=== PATIENT | female | born 1980 | race Caucasian/White ===

== ENCOUNTER → 2016-12-27 | Day surgery (SDC) | payer OTHER ==
[~2016-12-27] MED LIST: BUPIVACAINE HCL 0.25% 125 MG/50 ML VIAL ONE; LIDOCAINE HCL 1%, 10 MG/ML (20ML VIAL) ONE; MIDAZOLAM HCL 2 MG/2 ML SINGLE DOSE VIAL ONE; PROPOFOL 20 ML ONE
--- NOTE | 2016-12-30 09:19 | OP ---
DATE OF OPERATION: 12/27/2016 PROCEDURE: Left ultrasound-guided core biopsy and clip placement PREOPERATIVE DIAGNOSIS: Left breast mass 3 o'clock, 6 cm from the nipple POSTOPERATIVE DIAGNOSIS: Left breast mass 3 o'clock, 6 cm from the nipple ANESTHESIA: Local SURGEON: Jazlyn Ness MD ESTIMATED BLOOD LOSS: Minimal. COMPLICATIONS: None. DESCRIPTION OF PROCEDURE: Patient was made aware of the risks and benefits of the procedure and consented. Patient was placed in a supine position. Under sterile conditions with 1% lidocaine for local anesthesia, a small joe was made in the skin. Using a 15-gauge, a suction biopsy under a lateral approach and under ultrasound guidance, 6 cores were obtained and submitted to pathology. Likewise under ultrasound guidance, a clip was placed into the biopsy region, well-tolerated the patient. Steri-strips and a sterile bandage were applied. Will contact her with the results. JAZLYN NESS M.D. [id number]
--- NOTE | 2016-12-30 14:36 | PATH ---
Surgical Pathology Report Patient Name: JOSE PATTON [facility]. Rec. #: [id number] /Age/Gender: 1980 (Age: 36) / F Account: [id number] Location: [facility] RADIOLOGY U Taken: 12/27/2016 Received: 12/27/2016 Reported: 12/30/2016 Physicians: Troy Woodson M.D. Specimen(s) Received LEFT BREAST CORE BIOPSY 3:00 6CM FN Clinical History Non-palpable lesion Probably benign Final Diagnosis BREAST, LEFT, 3:00, 6 CM FN, CORE BIOPSY: BENIGN BREAST TISSUE SHOWING FIBROADENOMA. Electronically Signed Emmie Arnold M.D. Gross Description Received in formalin labeled "left breast 3:00, 6 cmfn," is a 2.1 x 1.3 x 0.3 cm. aggregate of multiple vanessa-yellow, irregular to cylindrical portions of fibroadipose tissue admixed with blood clot. The formalin is filtered and the specimen is entirely submitted in one cassette. Time to formalin fixation: < 1 minute Total formalin fixation time: Approximately 8 hours /12/27/2016
== END | disposition home or self-care (01) ==
LOC: FRADUS-SUR 13:35
PROVIDERS: ATTEND Surgery
PROC: 0HBU3ZX Excision of Left Breast, Percutaneous Approach, Diagnostic (ICD-10-PCS; principal; 2016-12-27)
DX: N63 Unspecified lump in breast (principal); D24.2 Benign neoplasm of left breast
CPT/HCPCS: 19083; 87899; 88305-TC; A4648

== ENCOUNTER 2017-01-30 10:20 | Day surgery (SDC) | payer OTHER ==
--- NOTE | 2017-01-17 10:44 | HP ---
Admitting History and Physical - Primary Care Physician PCP: Jolanta Ortega - Admission Chief Complaint: left breast mass History of Present Illness: 36 yo female presents with complaint of palpable left breast mass times 5 yrs. Patient states that mass has increased in size and is now intermittently painful. US done 11/13/2016 c/w a 1.9 cm mass. Patient underwent a left breast core bx on 12/27/2016 which was positive for fibroadenoma. Patient to undergo a WE of the mass. History Source: Patient Limitations to Obtaining History: No Limitations - Past Surgical History Additional Past Surgical History: ovarian cystectomy (2012) - Smoking History Smoking history: Never smoked Home Medications - Allergies Allergies/Adverse Reactions: Allergies Allergy/AdvReac Type Severity Reaction Status Date / Time No Known Allergies Allergy Verified 01/17/17 10:45 - Home Medications Home Medications (free text): Vitamin B 12 Family Disease History - Family Disease History Family History: Unremarkable Review of Systems - Review of Systems Genitourinary: reports: Other (painful and irregular periods) Musculoskeletal: reports: Back Pain, Joint Pain, Muscle Pain, Other (neck pain and difficulty walking) Endocrine: reports: Unexplained Weight Gain Physical Examination Constitutional: Yes: Well Nourished, Calm Breast(s): Yes: Other (Breast without skin changes noted. Bilateral dense breasts with 2 cm palpable mass at 3 oclock.) Problem List - Problems (1) Fibroadenoma of left breast Code(s): D24.2 - BENIGN NEOPLASM OF LEFT BREAST Assessment/Plan Left breast WE
[2017-01-24 15:32] VITALS: BMI 34.0
[2017-01-30] MEDS ORDERED: KETOROLAC TROMETHAMINE 30 MG/1 ML VIAL IVPUSH PRN (11:48)
[2017-01-30] MEDS ORDERED: DEXTROSE 5%-0.45% SALINE 1,000 ML IV SCH (12:00)
[2017-01-30] MEDS ORDERED: ONDANSETRON 4 MG/2 ML VIAL IVPB PRN (12:15)
[2017-01-30] MEDS ORDERED: LACTATED RINGERS SOLUTION 1,000 ML IV SCH (13:45)
[2017-01-30] MEDS ORDERED: ACETAMINOPHEN 500 MG TABLET (FP) PO PRN (13:58)
[2017-01-30] MEDS ORDERED: ONDANSETRON 4 MG/2 ML VIAL IVPUSH PRN (14:07)
[2017-01-30] MEDS ORDERED: oxyCODONE HCL 5 MG TABLET PO PRN (14:08)
[2017-01-30 15:13] VITALS: TEMP 97.4
[2017-01-30 15:20] VITALS: BP 126/65; PULSE 55
--- NOTE | 2017-01-30 19:38 | OP ---
DATE OF OPERATION: DATE OF DICTATION: 01/30/2017 PREOPERATIVE DIAGNOSIS: Left breast mass. POSTOPERATIVE DIAGNOSIS: Left breast mass. PROCEDURE: Excision of left breast mass. SURGEON: Jolanta Ortega M.D. ANSWERING SERVICE TELEPHONE OPERATOR: Judy Dawson ANESTHESIA: MAC. ANESTHESIOLOGIST: Tonya Bunch M.D. SPECIMEN: Left breast mass. ESTIMATED BLOOD LOSS: Minimal. INDICATION FOR PROCEDURE: The patient is a 36-year-old woman with a palpable left breast mass at 3 o'clock. Ultrasound guided biopsy showed fibroadenoma. The patient wanted excision, as the mass has increased in size. The procedure, risks, and complications were discussed with her prior to surgery. PROCEDURE: The patient was identified in the holding area. The left breast was marked with a marker. She was taken to the operating room and placed on the operating table in the supine position. She was sedated. The left breast was prepped and draped in the usual fashion. A timeout was performed. The mass was easily palpated at the 3 o'clock position in the left breast. The skin was infiltrated with 1% lidocaine. An incision was made directly over the mass. The incision was deepened using electrocautery. The mass was identified. In appearance, it was consistent with a multilobulated fibroadenoma. The mass was grasped with a clamp and from the surrounding breast tissue using electrocautery. The mass was removed completely and placed in formalin and sent to pathology for further examination. There was some bleeding at the base of the wound which was controlled with electrocautery. The wound was irrigated. The skin was infiltrated with 0.5% Marcaine. The deep tissue was closed with interrupted sutures of 3-0 Vicryl. The dermis was closed with interrupted sutures of 3-0 Vicryl. The skin was closed with a running subcuticular closure of 4-0 Monocryl. The wounds were cleaned and a sterile dressing was applied. A bra was then applied. The patient was awakened and taken to the recovery area in satisfactory condition. Troy [id number] MTDD
--- NOTE | 2017-02-03 16:16 | PATH ---
Surgical Pathology Report Patient Name: JOSE PATTON [facility]. Rec. #: [id number] /Age/Gender: 1980 (Age: 36) / F Account: [id number] Location: [facility] AMBULATORY Taken: 01/30/2017 Received: 01/30/2017 Reported: 02/03/2017 Physicians: Jolanta Ortega M.D. Specimen(s) Received LEFT BREAST MASS 3 O'CLOCK Clinical History Biopsy: fibroadenoma Final Diagnosis BREAST, LEFT, MASS AT 3:00, EXCISION: BENIGN BREAST TISSUE SHOWING FIBROADENOMA. PRIOR BIOPSY SITE CHANGES ARE PRESENT. Electronically Signed Emmie Arnold M.D. Gross Description Received in formalin labeled "left breast mass at 3:00," is a 2.0 x 2.0 x 1.9 cm vanessa-yellow, irregular, unoriented portion of fibroadipose tissue. There is no needle localization wire present. The specimen is inked green and serially sectioned. Sectioning reveals a 1.6 x 1.5 x 1.3 cm vanessa, firm, well-circumscribed mass focally abutting the radial margin. No areas of hemorrhage or necrosis are identified. The specimen is entirely and sequentially submitted in 6 cassettes. Time to formalin fixation: 5 minutes Total formalin fixation time: Approximately 29 hours. 01/31/201701/31/2017
== END 2017-01-30 16:00 | disposition home or self-care (01) ==
LOC: FASU 10:20
PROVIDERS: ATTEND Surgery
PROC: 0HBU0ZX Excision of Left Breast, Open Approach, Diagnostic (ICD-10-PCS; principal; 2017-01-30 12:54)
DX: N63 Unspecified lump in breast (principal); D24.2 Benign neoplasm of left breast
CPT/HCPCS: 84703; 88307-TC